=== PATIENT | male | born 1985 | race Caucasian/White ===

== ENCOUNTER 2021-11-29 15:33 | Inpatient (IN) | payer OTHER ==
[2021-11-29] MEDS ORDERED: NA CHLORIDE 0.9% 1,000 ML ONE (17:23)
[2021-11-29] MEDS ORDERED: ONDANSETRON 4 MG/2 ML VIAL ONE ×3 (17:23→19:38)
[2021-11-29 17:38] LABS: Absolute Lymphocytes (CBC) 0.4 K/uL (0.7-4.9); Hematocrit 44.2 % (39.6-49.0); MPV 8.3 fL (7.6-11.3); RBC Red Blood Cell Count 4.88 M/uL (4.33-5.43)
[2021-11-29 17:56] LABS: Albumin 4.3 g/dL (3.4-5.0); Bilirubin Total 1.2 mg/dL (0.2-1.0); Potassium 3.8 mmol/L (3.5-5.1); Protein, Total 8.4 g/dL (6.4-8.2)
--- NOTE | 2021-11-29 18:30 | RAD REPORT ---
EXAM DESCRIPTION: CT - Abdomen Pelvis W Contrast - 11/29/2021 6:13 pm CLINICAL HISTORY: Abdominal pain COMPARISON: none. TECHNIQUE: Computed axial tomography of the abdomen pelvis was obtained. 100 cc Isovue-300 was admin istered intravenously. Oral contrast was not requested which limits evaluation of bowel. All CT scans are performed using dose optimization technique as appropriate and may include automated exposure control or mA/KV adjustment according to patient size. FINDINGS: The liver, spleen, pancreas, adrenal and kidneys appear unremarkable. There is no evidence of diverticulitis. The appendix is dilated and extends superior laterally from cecum. Portions of the appendix are indis tinct. Marked adjacent stranding. Ill-defined fluid is present. Small to moderate amount of ascites a nterior to the rectum. No free air seen IMPRESSION: Appendicitis. A perforation may be present
--- NOTE | 2021-11-29 18:49 | ER ---
Nurse's Notes [facility] Name: Quang Ingram Age: 36 yrs Sex: Male : 1985 Arrival Date: 11/29/2021 Time: 15:36 Bed DIS4 Private MD: Diagnosis: Unspecified acute appendicitis Presentation: 11/29 17:16 Chief complaint: Patient states: I started having upper abdominal pain on Tuesday. It jb4 got really sharp on Tuesday and started vomiting and have been since. Now it is my lower abdomen and I am having pain in my right leg. Coronavirus screen: At this time, the client does not indicate any symptoms associated with coronavirus-19. Ebola Screen: No symptoms or risks identified at this time. Initial Sepsis Screen: Does the patient meet any 2 criteria? HR > 90 bpm. Yes Does the patient have a suspected source of infection? Yes: Acute abdominal pain. Risk Assessment: Do you want to hurt yourself or someone else? Patient reports no desire to harm self or others. Onset of symptoms was November 29, 2021. Transition of care: patient was not received from another setting of care. 17:16 Method Of Arrival: Ambulatory jb4 17:16 Acuity: ALEXANDRO 3 jb4 Historical: - Allergies: 17:17 No Known Allergies; jb4 - Home Meds: 17:17 None [Active]; jb4 - PMHx: 17:17 None; jb4 - PSHx: 17:17 None; jb4 - Immunization history:: Adult Immunizations up to date. - Social history:: Smoking status: Patient denies any tobacco usage or history of. Assessment: 19:01 General: Appears in no apparent distress. uncomfortable, Behavior is calm, cooperative, jb4 appropriate for age. Pain: Complains of pain in abdomen Pain does not radiate. Neuro: Level of Consciousness is awake, alert, obeys commands, Oriented to person, place, time, situation. Cardiovascular: Patient's skin is warm and dry. Respiratory: Airway is patent Respiratory effort is even, unlabored, Respiratory pattern is regular, symmetrical. GI: Abdomen is flat, non-distended. : No signs and/or symptoms were reported regarding the genitourinary system. EENT: No signs and/or symptoms were reported regarding the EENT system. Derm: Skin is intact, Skin is pink, warm \T\ dry. Musculoskeletal: Circulation, motion, and sensation intact. Range of motion: intact in all extremities. Vital Signs: 17:16 BP 123 / 90; Pulse 119; Resp 16; Temp 98.8(TE); Pulse Ox 99% on R/A; Weight 74.84 kg jb4 (R); Height 6 ft. 0 in. (182.88 cm) (R); Pain 9/10; 19:01 BP 130 / 88; Pulse 113; Resp 16; Temp 99.4(TE); Pulse Ox 99% on R/A; jb4 17:16 Body Mass Index 22.38 (74.84 kg, 182.88 cm) jb4 ED Course: 15:36 Patient arrived in ED. jj6 15:40 Cristi Walton PA is PHCP. jmm 15:40 Angel Mcduffie MD is Attending Physician. jmm 17:17 Triage completed. jb4 17:17 Arm band placed on right wrist. jb4 17:34 CBC with Diff Sent. lizama 17:34 CMP Sent. lizama 17:34 Lipase Sent. lizama 17:34 Inserted saline lock: 20 gauge in left antecubital area, using aseptic technique. lizama 18:14 CT Abd/Pelvis - IV Contrast Only In Process Unspecified. EDMS 18:47 Arcadio Mendez MD is Hospitalizing Provider. m 19:03 Jesse Coleman, ADRIAN is Primary Nurse. as6 Administered Medications: 17:33 Drug: NS 0.9% 1000 ml Route: IV; Rate: 1 bolus; Site: left antecubital; lizama 17:34 Drug: Zofran (Ondansetron) 4 mg Route: IVP; Site: left antecubital; lizama 17:34 Follow up: Response: No adverse reaction lizama 18:56 Drug: Zosyn (piperacillin-tazobactam) 3.375 grams Route: IVPB; Infused Over: 60 mins; jb4 Site: left antecubital; 18:57 Drug: morphine 4 mg Route: IVP; Site: left antecubital; jb4 19:33 Not Given (Patient Refused): Zofran (Ondansetron) 4 mg IVP once; over 2 minutes tw5 Outcome: 18:48 Decision to Hospitalize by Provider. jmm 19:45 Patient left the ED. tw5 Signatures: Dispatcher [employer] EDMS Cristi Walton PA PA jmm Bryson, James, RN RN jb4 Suly Hawthorne tw5 Rupinder Blancaj6 Jesse Coleman, RN RN as6 Bruna De Jesus RN RN lizama
--- NOTE | 2021-11-29 18:49 | EDPHYS ---
Physician Documentation [facility] Name: Quang Ingram Age: 36 yrs Sex: Male : 1985 Arrival Date: 11/29/2021 Time: 15:36 Bed DIS4 Private MD: ED Physician Angel Mcduffie HPI: 11/29 16:26 This 36 yrs old Male presents to ER via Ambulatory with complaints of Abdominal Pain, jmm Fever. 16:26 The patient presents with abdominal pain. Onset: The symptoms/episode began/occurred jmm gradually, 2 day(s) ago. The symptoms do not radiate. Associated signs and symptoms: Pertinent positives: nausea and vomiting. The symptoms are described as achy. Modifying factors: The symptoms are alleviated by nothing, the symptoms are aggravated by nothing. This is a 36 year old male with no chronic medical conditions that presents to the ED with complaints of lower abdominal pain, vomiting beginning approx 2 days ago. Denies diarrhea. . Historical: - Allergies: 17:17 No Known Allergies; jb4 - Home Meds: 17:17 None [Active]; jb4 - PMHx: 17:17 None; jb4 - PSHx: 17:17 None; jb4 - Immunization history:: Adult Immunizations up to date. - Social history:: Smoking status: Patient denies any tobacco usage or history of. ROS: 16:26 Cardiovascular: Negative for chest pain, palpitations, and edema, Abdomen/GI: Negative jmm for abdominal pain, nausea, vomiting, diarrhea, and constipation. 16:26 Constitutional: Positive for body aches, chills. 16:26 Abdomen/GI: Positive for abdominal pain. 16:26 All other systems are negative. Exam: 16:26 Constitutional: This is a well developed, well nourished patient who is awake, alert, jmm and in no acute distress. Head/Face: atraumatic. Eyes: EOMI, no conjunctival erythema appreciated ENT: Moist Mucus Membranes Neck: Trachea midline, Supple Chest/axilla: Normal chest wall appearance and motion. Cardiovascular: Regular rate and rhythm. No edema appreciated Respiratory: Normal respirations, no respiratory distress appreciated 16:26 Back: Normal ROM Skin: General appearance color normal MS/ Extremity: Moves all extremities, no obvious deformities appreciated, no edema noted to the lower extremities Neuro: Awake and alert Psych: Behavior is normal, Mood is normal, Patient is cooperative and pleasant 16:26 Abdomen/GI: Inspection: abdomen appears normal, Bowel sounds: normal, Palpation: soft, moderate abdominal tenderness, in the right lower quadrant. Vital Signs: 17:16 BP 123 / 90; Pulse 119; Resp 16; Temp 98.8(TE); Pulse Ox 99% on R/A; Weight 74.84 kg jb4 (R); Height 6 ft. 0 in. (182.88 cm) (R); Pain 9/10; 19:01 BP 130 / 88; Pulse 113; Resp 16; Temp 99.4(TE); Pulse Ox 99% on R/A; jb4 17:16 Body Mass Index 22.38 (74.84 kg, 182.88 cm) 4 MDM: 16:32 Patient medically screened. [facility] 18:42 Data reviewed: vital signs, nurses notes. Counseling: I had a detailed discussion with [facility] the patient and/or guardian regarding: the historical points, exam findings, and any diagnostic results supporting the discharge/admit diagnosis, lab results, the need for further work-up and treatment in the hospital. ED course: I discussed the patient with Dr. Mendez whom accepted the patient to his service. . 11/29 16:26 Order name: CBC with Diff; Complete Time: 19:29 [facility] 11/29 16:26 Order name: CMP; Complete Time: 17:57 [facility] 11/29 16:26 Order name: Lipase; Complete Time: 17:57 [facility] 11/29 16:26 Order name: CT Abd/Pelvis - IV Contrast Only; Complete Time: 18:32 [facility] 11/29 19:05 Order name: SARS-COV-2 RT PCR (Document "Date of Onset" if Symptomatic) [facility] 11/29 19:24 Order name: CBC Smear Scan; Complete Time: 19:29 [facility] 11/29 16:26 Order name: IV Saline Lock; Complete Time: 17:34 [facility] 11/29 16:26 Order name: Labs collected and sent; Complete Time: 17:34 [facility] Administered Medications: 17:33 Drug: NS 0.9% 1000 ml Route: IV; Rate: 1 bolus; Site: left antecubital; lizama 17:34 Drug: Zofran (Ondansetron) 4 mg Route: IVP; Site: left antecubital; lizama 17:34 Follow up: Response: No adverse reaction lizama 18:56 Drug: Zosyn (piperacillin-tazobactam) 3.375 grams Route: IVPB; Infused Over: 60 mins; jb4 Site: left antecubital; 18:57 Drug: morphine 4 mg Route: IVP; Site: left antecubital; jb4 19:33 Not Given (Patient Refused): Zofran (Ondansetron) 4 mg IVP once; over 2 minutes tw5 Disposition Summary: 11/29/21 18:48 Hospitalization Ordered Hospitalization Status: Inpatient Admission [facility] Provider: Arcadio Mendez Location: Operating Room [facility] Condition: Stable [facility] Problem: new [facility] Symptoms: are unchanged [facility] Bed/Room Type: Standard [facility] Room Assignment: [facility] Diagnosis - Unspecified acute appendicitis [facility] Discharge Instructions: - Discharge Summary Sheet em1 Forms: - Medication Reconciliation Form [facility] - SBAR form em1 Addendum: 12/04/2021 07:44 Co-signature as Attending Physician, Angel Mcduffie MD I agree with the assessment and c lizama plan of care. Signatures: Dispatcher [employer] EDAngel Rosas MD MD cha Mickail, Joel, PA PA jmm Bryson, James, RN RN jb4 Bruna De Jesus RN RN ha Wood, Tiffany tw5
[2021-11-29] MEDS ORDERED: MORPHINE 4 MG/ML SYR ONE (18:50)
[2021-11-29] MEDS ORDERED: PIPERACIL/TAZO 3.375 GM VIAL IV ONE (18:51)
[2021-11-29] MEDS ORDERED: NA CHLORIDE 0.9% 100 ML IV ONE (18:51)
[2021-11-29 19:23] LABS: Platelet Estimate ADEQ
[2021-11-29 19:24] LABS: Anisocytosis 2+; Blood Morphology Comment NOTED (NOT SEEN)
[2021-11-29 19:25] LABS: White Blood Cell Scan OK (OK)
[2021-11-29] MEDS ORDERED: LIDOCAINE 1% MPF 5 ML VIAL ONE (19:36)
[2021-11-29] MEDS ORDERED: MIDAZOLAM HCL 2 MG/2 ML INJ ONE (19:36)
[2021-11-29] MEDS ORDERED: FENTANYL CITR 100 MCG/2 ML ONE (19:36)
[2021-11-29] MEDS ORDERED: propofoL 200 MG/20 ML VIAL IV ONE (19:36)
[2021-11-29] MEDS ORDERED: NEOSTIGMINE 1 MG/ML -5 ML ONE (19:37)
[2021-11-29] MEDS ORDERED: dexAMETHasone 4 MG/ML VIAL ONE (19:37)
[2021-11-29] MEDS ORDERED: GLYCOPYRROLATE 0.2 MG/ML SYR ONE (19:38)
[2021-11-29] MEDS ORDERED: KETOROLAC 30 MG/ML INJ ONE (19:38)
[2021-11-29] MEDS ORDERED: ROCURONIUM 50 MG/5 ML VIAL IV ONE (19:38)
[2021-11-29] MEDS ORDERED: Ringers Lactate 1,000 ML IV ONE ×2 (19:46→21:15)
[2021-11-29] MEDS ORDERED: NA CIT/CITRIC AC 30 ML ORAL UDC ONE (19:46)
[2021-11-29] MEDS ORDERED: NA CIT/CITRIC AC 30 ML ORAL UDC PO ONE (19:50)
--- NOTE | 2021-11-29 20:02 | P.HP ---
Date of Service: 11/29/21 PC: This 36-year-old male presented to the emergency room with severe right lower quadrant abdominal pain for diagnosis and treatment. HPC: Patient has not felt well since Tuesday. At that time noticed he was having some nausea as well as some lower abdominal discomfort. At that time it was all the way across his abdomen. He came home last night from a vacation, and today when he woke up the pain had intensified, located in the right lower quadrant, and he found it difficult to walk. PSHx: Negative PMHx: No medical issues Social Hx: Denies any allergies, does not take any medicines on a regular basis Sys R: No cough, wheeze, shortness of breath. No chest pain or palpitations. Denies any urinary complaints O/E: Awake alert obviously uncomfortable vital signs are stable he is afebrile at the moment HEENT: Nonicteric Chest: Air entry is equal bilaterally Abd: Tender with guarding in the right lower quadrant Yale: Intact Data: Elevated white cell count, CT scan supports clinical diagnosis of acute abdomen with probable appendicitis. There is fluid seen around the area of the appendix suggesting of rupture. Impression: Acute abdomen with possible ruptured appendix Plan: I will taken to the operating room for laparoscopic possible open appendectomy. The risks of this procedure have been discussed. The possibility of bleeding, infection, injury to bowel blood vessels and surrounding structures was outlined. The possibility of abscess formation and need for further surgeries and procedures was discussed. He understands and wants us to proceed.
[2021-11-29] MEDS ORDERED: MORPHINE 10 MG/ML VIAL ONE (20:56)
--- NOTE | 2021-11-29 21:51 | P.OP ---
Preoperative diagnosis: Acute abdomen with appendicitis Postoperative diagnosis: The same ruptured appendix Primary procedure: Laparoscopic appendectomy Anesthesia: General Estimated blood loss: Less than 20 cc Operative Technique: The patient brought to the operating room and placed supine on the table. After the induction of adequate general endotracheal anesthesia, there the abdomen was prepped with a DuraPrep solution, and he was draped in usual aseptic manner. A subumbilical incision was made. This was brought down through skin and subcutaneous tissue. The Visiport was now used to enter the peritoneal cavity. Pneumoperitoneum to approximately 12 mmHg. Under direct vision a 5 mm trocar was placed in the lower midline, and another in the right upper quadrant. With the patient placed in Trendelenburg and rolled to the left ligament visualizing right lower quadrant. We could see a inflamed area around the cecum. On tracing the tenia went out laterally and S2. Diving into the retroperitoneum. It was necessary to mobilize the cecum. This was done by opening the white line of Toldt. At this point we found the appendix was laid almost in the retroperitoneum, behind the cecum itself. We were finally able to clean out and expose the full length of the appendix. It was noted to have a perforation about one third of the distance of the body of the appendix. The junction of the appendix with the cecum was identified. It was necessary for us to convert the 5 mm upper trocar site to a [address] a linear stapler and there. Having done this we were able to place a stapler across the base of the appendix and cecum. The instrument was fired detaching the appendix. A reload allowed us to control the vasculature. The area was inspected to ensure adequate hemostasis. The specimen was placed into an Endo Catch and brought out through the umbilical trocar site. Right lower quadrant was irrigated with a copious amount of a saline solution. A Yohannes-Price drain was placed into the right lower quadrant along the sidewall between the cecum and the sidewall of the abdomen. This was brought out through our most inferior incision. Pneumoperitoneum was now collapsed, the trochars removed, and after approximating the fascial defect in the right upper quadrant and the umbilicus, the skin was closed with homa. At the end of the procedure he was in a stable condition and sent to the recovery room. Needle sponge instrument count were correct. No drains were placed. Complications: None Drain(s): DEWAYNE drain Transferred to: Recovery Room Condition: Good
[2021-11-29] MEDS ORDERED: ONDANSETRON 4 MG/2 ML VIAL IV PRN (21:55)
[2021-11-29] MEDS ORDERED: MORPHINE 4 MG/ML SYR IV PRN (21:58)
[2021-11-29] MEDS ORDERED: MORPHINE 4 MG/ML SYR IV SCH (22:00)
[2021-11-29] MEDS: Ringers Lactate 1,000 ML IV SCH (22:00)
[2021-11-29 22:33] VITALS: BMI 22.4
[2021-11-30] MEDS: HYDROCODONE/APAP 7.5/325 MG TAB PO PRN ×3 (04:48→21:47)
[2021-11-30] MEDS: Ringers Lactate 1,000 ML IV SCH ×2 (06:46→16:46)
[2021-11-30] MEDS: Levofloxacin 750mg IV 750 MG/150 ML BAG IV SCH (09:00)
[2021-11-30] MEDS ORDERED: Levofloxacin500mg IV 500 MG/100 ML BAG IV SCH (09:00)
[2021-11-30] MEDS ORDERED: MORPHINE 2 MG/ML SYR ONE (16:40)
[2021-12-01 04:47] VITALS: O2SAT 96
[2021-12-01] MEDS: Ringers Lactate 1,000 ML IV SCH ×2 (05:28→14:00)
[2021-12-01] MEDS: HYDROCODONE/APAP 7.5/325 MG TAB PO PRN ×2 (06:22→15:13)
[2021-12-01] MEDS: Levofloxacin 750mg IV 750 MG/150 ML BAG IV SCH (09:07)
[2021-12-01 16:31] VITALS: BP 130/70; TEMP 99.6
== END 2021-12-01 16:44 | disposition home or self-care (01) | DRG 340 ==
LOC: ER 15:33 → 2ND 15:34 → INTOOBSV 15:34 → 2ND 21:53 → UNDOADMIN 21:53 → 2ND 21:53 → ER 21:53 → OBSVTOIN 11-30 14:41
PROVIDERS: ADMIT Surgery; ATTEND Surgery
PROC: 0DTJ4ZZ Resection of Appendix, Percutaneous Endoscopic Approach (ICD-10-PCS; principal; 2021-11-29 20:00)
DX: K35.32 Acute appendicitis with perforation, localized peritonitis, and gangrene, without abscess (principal); Z20.822 Contact with and (suspected) exposure to COVID-19
CPT/HCPCS: 36415; 74177; 80053; 83690; 85025; 88304; 94010; 96374; 96375; 99284; G0378; J1100; J2250; J2270; J2405; J2543; J2704; J2710; J3010; J7030; J7120; Q9967; U0003